=== PATIENT | male | born 1995 | race Hispanic/Latino ===

== ENCOUNTER 2022-05-26 21:03 | Emergency (ER) | payer OTHER, SELFPAY | END 2022-05-26 22:11 | disposition home or self-care (01) | LOC: ERS 21:03 | DX: S33.5XXA Sprain of ligaments of lumbar spine, initial encounter (principal); F17.210 Nicotine dependence, cigarettes, uncomplicated; V89.2XXA Person injured in unspecified motor-vehicle accident, traffic, initial encounter | CPT/HCPCS: 72100 ==